=== PATIENT | female | born 1940 | race Two or more races ===

== ENCOUNTER → 2017-02-05 | Outpatient (CLI) | payer OTHER ==
[2016-02-12 10:20] VITALS: BP 121/51
[~2017-02-05] MED LIST: AMLO5TAB2 PO; BUDE10.22 IH; DICL75TA PO; HYDR12.58 PO; METF850T2 PO; POTA10TA5 PO
--- NOTE | 2017-02-05 16:13 | KCIC ---
CT of the right shoulder without contrast Indication: Displaced fracture. Shoulder pain after a fall 3 weeks ago. . Comparison: No comparison is available. Contrast: None TECHNIQUE: Images were obtained using bone algorithm. Exposure: One or more of the following individualized dose reduction techniques were utilized for this examination: 1. Automated exposure control 2. Adjustment of the mA and/or kV according to patient size 3. Use of iterative reconstruction technique. Findings: Acromioclavicular joint is mildly degenerative with small undersurface osteophytes. Minimal degenerative spurring of the glenohumeral joint. Minimal calcification within the distal rotator cuff compatible with mild calcific tendinitis. No evidence of an acute fracture. No aggressive bone destruction. No obvious soft tissue abnormality. IMPRESSION: 1. No acute fracture or dislocation. 2. Primary osteoarthritis. Electronically signed by: Fermin Toribio MD (02/05/2017 4:10 PM)
== END | disposition home or self-care (01) ==
LOC: KCIC CT 08:51
PROVIDERS: ATTEND Nurse Practitioner Gerontology
DX: M19.011 Primary osteoarthritis, right shoulder (principal)
CPT/HCPCS: 73200

== ENCOUNTER → 2017-05-17 | Outpatient (CLI) | payer OTHER ==
[2016-02-12 10:20] VITALS: BP 121/51
--- NOTE | 2017-05-17 12:21 | RAD ---
DATE: 05/17/2017. EXAM: DIGITAL SCREEN BILAT W/CAD. HISTORY: Routine mammographic screening. COMPARISON: 04/16/2016, 12/19/2014, 12/04/2013. This study was interpreted with the benefit of Computerized Aided Detection (CAD). FINDINGS: The breast parenchyma is primarily fatty replaced. Breast parenchyma level density A.. There are no suspicious masses, microcalcifications or architectural distortion. Vascular calcifications are benign. Stable intraparenchymal lymph nodes are seen bilaterally. BI-RADS CATEGORY: 2 BENIGN FINDING(S). RECOMMENDED FOLLOW-UP: 12M 12 MONTH FOLLOW-UP. PQRS compliance statement: Patient information was entered into a reminder system with a target due date 05/17/2018 for the next mammogram. Mammography is a sensitive method for finding small breast cancers, but it does not detect them all and is not a substitute for careful clinical examination. A negative mammogram does not negate a clinically suspicious finding and should not result in delay in biopsying a clinically suspicious abnormality. "Our facility is accredited by the [employer] Mammography Program."
== END | disposition home or self-care (01) ==
LOC: MAMMO 08:01
PROVIDERS: ATTEND Family Medicine
DX: Z12.31 Encounter for screening mammogram for malignant neoplasm of breast (principal)
CPT/HCPCS: G0202; 77067

== ENCOUNTER 2019-06-06 10:59 | Emergency (ER) | payer OTHER ==
[~2019-06-06] VITALS: Ht 154.9 cm; Wt 79.4 kg
[~2019-06-06 10:59] MED LIST changes: +AMLO5TAB10 PO; -AMLO5TAB2 PO; -METF850T2 PO; +METF850T8 PO; +POTA10TA12 PO; -POTA10TA5 PO
[2019-06-06 11:50] LABS: CALCIUM 9.4 mg/dL (8.5-10.1); CREATININE 0.9 mg/dL (0.6-1.0); GFR 60.4
[2019-06-06 11:51] LABS: PROTHROMBIN TIME PATIENT 12.8 SEC (11.7-14.0)
[2019-06-06 11:52] LABS: BASO % 1 % (0-3); EOS # 0.1 x10^3/uL (0.0-0.7); EOS % 1 % (0-3); HEMATOCRIT 33.6 % (36.0-47.0); HEMOGLOBIN 11.4 g/dL (12.0-15.5); LYMPH # 1.1 x10^3/uL (1.0-4.8); LYMPH % 21 % (24-48); MEAN CORPUSCULAR HEMOGLOBIN 31 pg (25-35); MEAN CORPUSCULAR HGB CONC 34 g/dL (31-37); MEAN CORPUSCULAR VOLUME 91 fL (79-100); MONO # 0.4 x10^3/uL (0.0-1.1); MONO % 7 % (0-9); NEUT # 3.8 x10^3/uL (1.8-7.7); NEUT % 70 % (31-73); PLATELET COUNT 182 x10^3/uL (140-400); RED BLOOD COUNT 3.71 x10^6/uL (3.50-5.40); RED CELL DISTRIBUTION WIDTH 14.8 % (11.5-14.5); WHITE BLOOD COUNT 5.5 x10^3/uL (4.0-11.0)
[2019-06-06 11:57] LABS: ALBUMIN 3.6 g/dL (3.4-5.0); ALBUMIN/GLOBULIN RATIO 0.9 (1.0-1.7); MAGNESIUM 1.7 mg/dL (1.8-2.4); TOTAL BILIRUBIN 0.4 mg/dL (0.2-1.0); TOTAL PROTEIN 7.4 g/dL (6.4-8.2)
--- NOTE | 2019-06-06 12:06 | RAD ---
Single AP view of the chest. Comparison: None. Indication: Dizziness Findings: There is degenerative changes of bilateral shoulders. The heart is not enlarged. There is no pneumothorax or effusion. No air space or interstitial disease. Impression: 1. No acute cardiopulmonary process. Electronically signed by: Denilson Cedeno MD (06/06/2019 12:03 PM) [id number]
--- NOTE | 2019-06-06 12:11 | RAD ---
CT HEAD WO CONTRAST History: Dizziness Comparison: None. Technique: Noncontrast CT imaging was performed of the head. Exposure: One or more of the following individualized dose reduction techniques were utilized for this examination: 1. Automated exposure control 2. Adjustment of the mA and/or kV according to patient size 3. Use of iterative reconstruction technique. Findings: No acute extra-axial or parenchymal hemorrhage is identified. There is no significant intra-axial mass effect, midline shift, or extra-axial fluid collection. The goldsmith-white differentiation of the major vascular territories is preserved. The ventricles, sulci, and cisterns are within normal limits in size and configuration. The mastoid air cells and the visualized paranasal sinuses are aerated. No acute calvarial abnormality is identified. There is atherosclerotic calcification of the bilateral carotid siphons and intradural vertebral arteries. There is probably at least partially empty sella. Impression: 1. No acute intracranial abnormality is identified. Electronically signed by: Jack Villareal MD (06/06/2019 12:09 PM) [facility]
--- NOTE | 2019-06-06 12:33 | EKG ---
[facility] [address] [place] [address] Test Date: 2019-06-06 Test Time: 11:09:28 Pat Name: BENNIE BABCOCK Department: Room: Gender: F Filling Mixer: : 1940 Requested By: ANAND WOMACK Order Number: [id number] Reading MD: Measurements Intervals [place] Rate: 56 P: 62 NH: 144 QRS: -17 QRSD: 92 T: 51 QT: 426 QTc: 413 Interpretive Statements SINUS RHYTHM LEFTWARD AXIS OTHERWISE NORMAL ECG No previous ECG available for comparison
[2019-06-06 12:42] LABS: BILIRUBIN,URINE NEGATIVE (NEG); CLARITY,URINE CLEAR; COLOR,URINE YELLOW; NITRITE,URINE NEGATIVE (NEG); PROTEIN,URINE NEGATIVE (NEG-TRACE); UROBILINOGEN,URINE 0.2 mg/dL (0.2 mg/dL)
[2019-06-06 12:51] LABS: BACTERIA,URINE 0 /HPF (0-FEW); RBC,URINE 0 /HPF (0-2); SQUAMOUS EPITHELIAL CELL,UR FEW /LPF; WBC,URINE >40 /HPF (0-4)
[2019-06-06] MEDS ORDERED: IV NORMAL SALINE 1000ML BAG 1,000 ML IV ONE (13:15)
[2019-06-06] MEDS ORDERED: cefTRIAXone IV Push 1 GM VIAL. IVP ONE (13:15)
[2019-06-06] MEDS ORDERED: MECL25TA3 PO (13:41)
[2019-06-06] MEDS ORDERED: CIPR250T30 PO (13:41)
--- NOTE | 2019-06-06 13:42 | PHYS DOC ---
Past Medical History Past Medical History: Diabetes-Type II, Hypertension, Hypothyroid Additional Past Surgical Histo: BACK Alcohol Use: None Drug Use: None Adult General Chief Complaint Chief Complaint: DIZZY/LIGHT HEADED HPI HPI Patient is a 78 year old female who presents with obtaining of dizziness. Patient complaining of episodes of dizziness with standing up and changing position of her head since yesterday without headache, focal neuro deficit, nausea and vomiting, chest pain, shortness of breath, blurred vision or diplopia. Patient states she had one subsequent to this of a splinter. Patient denies recent URI symptoms or fever and chills. Review of Systems Review of Systems Constitutional: Denies fever or chills [] Eyes: Denies change in visual acuity, redness, or eye pain [] HENT: Denies nasal congestion or sore throat [] Respiratory: Denies cough or shortness of breath [] Cardiovascular: No additional information not addressed in HPI [] GI: Denies abdominal pain, nausea, vomiting, bloody stools or diarrhea [] : Denies dysuria or hematuria [] Musculoskeletal: Denies back pain or joint pain [] Integument: Denies rash or skin lesions [] Neurologic: Denies headache, focal weakness or sensory changes [] Endocrine: Denies polyuria or polydipsia [] All other systems were reviewed and found to be within normal limits, except as documented in this note. Current Medications Current Medications Current Medications Medications (Trade) Dose Ordered Sig/Marybeth Start Time Stop Time Status Last Admin Dose Admin Ceftriaxone Sodium (Rocephin) 1 gm 1X ONCE 06/06/19 13:15 06/06/19 13:16 DC 06/06/19 13:31 1 GM Sodium Chloride 1,000 ml @ 1,000 mls/hr 1X ONCE 06/06/19 13:15 06/06/19 14:14 06/06/19 13:30 1,000 MLS/HR Allergies Allergies Allergies Coded Allergies Type Severity Reaction Last Updated Verified Sulfa (Sulfonamide Antibiotics) Allergy Intermediate Anxiety 02/12/16 Yes codeine Allergy Intermediate Itching 02/12/16 Yes Physical Exam Physical Exam Constitutional: Well developed, well nourished, mild distress, non-toxic appearance. [] HENT: Normocephalic, atraumatic. Eyes: PERRLA, EOMI, conjunctiva normal, no discharge. [] Neck: Normal range of motion, no tenderness, supple, no stridor. [] Cardiovascular:Heart rate regular rhythm, no murmur [] Lungs & Thorax: Bilateral breath sounds clear to auscultation [] Abdomen: Bowel sounds normal, soft, no tenderness, no masses, no pulsatile masses. [] Skin: Warm, dry, no erythema, no rash. [] Back: No tenderness, no CVA tenderness. [] Extremities: No tenderness, no cyanosis, no clubbing, ROM intact, no edema. [] Neurologic: Alert and oriented X 3, no focal deficits noted. [] Psychologic: Affect normal, judgement normal, mood normal. [] Current Patient Data Vital Signs Vital Signs Date Time Temp Pulse Resp B/P (MAP) Pulse Ox O2 Delivery O2 Flow Rate FiO2 06/06/19 11:00 98.3 64 20 176/77 (110) 98 Room Air 98.3 Lab Values Laboratory Tests Test 06/06/19 11:10 06/06/19 12:10 White Blood Count 5.5 x10^3/uL (4.0-11.0) Red Blood Count 3.71 x10^6/uL (3.50-5.40) Hemoglobin 11.4 g/dL (12.0-15.5) L Hematocrit 33.6 % (36.0-47.0) L Mean Corpuscular Volume 91 fL (79-100) Mean Corpuscular Hemoglobin 31 pg (25-35) Mean Corpuscular Hemoglobin Concent 34 g/dL (31-37) Red Cell Distribution Width 14.8 % (11.5-14.5) H Platelet Count 182 x10^3/uL (140-400) Neutrophils (%) (Auto) 70 % (31-73) Lymphocytes (%) (Auto) 21 % (24-48) L Monocytes (%) (Auto) 7 % (0-9) Eosinophils (%) (Auto) 1 % (0-3) Basophils (%) (Auto) 1 % (0-3) Neutrophils # (Auto) 3.8 x10^3/uL (1.8-7.7) Lymphocytes # (Auto) 1.1 x10^3/uL (1.0-4.8) Monocytes # (Auto) 0.4 x10^3/uL (0.0-1.1) Eosinophils # (Auto) 0.1 x10^3/uL (0.0-0.7) Basophils # (Auto) 0.0 x10^3/uL (0.0-0.2) Prothrombin Time 12.8 SEC (11.7-14.0) Prothrombin Time INR 1.0 (0.8-1.1) Sodium Level 144 mmol/L (136-145) Potassium Level 4.0 mmol/L (3.5-5.1) Chloride Level 108 mmol/L (98-107) H Carbon Dioxide Level 24 mmol/L (21-32) Anion Gap 12 (6-14) Blood Urea Nitrogen 27 mg/dL (7-20) H Creatinine 0.9 mg/dL (0.6-1.0) Estimated GFR (Cockcroft-Gault) 60.4 BUN/Creatinine Ratio 30 (6-20) H Glucose Level 114 mg/dL (70-99) H Calcium Level 9.4 mg/dL (8.5-10.1) Magnesium Level 1.7 mg/dL (1.8-2.4) L Total Bilirubin 0.4 mg/dL (0.2-1.0) Aspartate Amino Transferase (AST) 14 U/L (15-37) L Alanine Aminotransferase (ALT) 12 U/L (14-59) L Alkaline Phosphatase 79 U/L (46-116) Creatine Kinase 64 U/L (26-192) Troponin I Quantitative < 0.017 ng/mL (0.000-0.055) RZ-Wuh-N-Type Natriuretic Peptide 225 pg/mL (0-449) Total Protein 7.4 g/dL (6.4-8.2) Albumin 3.6 g/dL (3.4-5.0) Albumin/Globulin Ratio 0.9 (1.0-1.7) L Urine Collection Type Unknown Urine Color Yellow Urine Clarity Clear Urine pH 6.0 Urine Specific Silver 1.010 Urine Protein Negative mg/dL (NEG-TRACE) Urine Glucose (UA) Negative mg/dL (NEG) Urine Ketones (Stick) Negative mg/dL (NEG) Urine Blood Negative (NEG) Urine Nitrite Negative (NEG) Urine Bilirubin Negative (NEG) Urine Urobilinogen Dipstick 0.2 mg/dL (0.2 mg/dL) Urine Leukocyte Esterase Moderate (NEG) Urine RBC 0 /HPF (0-2) Urine WBC >40 /HPF (0-4) Urine Squamous Epithelial Cells Few /LPF Urine Bacteria 0 /HPF (0-FEW) Laboratory Tests 06/06/19 11:10 Laboratory Tests 06/06/19 11:10 EKG EKG EKG interpreted by me. EKG at 1109 showed bradycardia at rate of 56, left koroma axis, no acute ST and T-wave abnormalities. Radiology/Procedures Radiology/Procedures [][place] [address] IMAGING REPORT Signed PATIENT: BENNIE BABCOCK ACCOUNT: [id number] : 1940 LOCATION: ER AGE: 78 SEX: F EXAM STATUS: REG ER ORD. PHYSICIAN: ANAND WOMACK MD REASON: dizziness PROCEDURE: PORTABLE CHEST 1V Single AP view of the chest. Comparison: None. Indication: Dizziness Findings: There is degenerative changes of bilateral shoulders. The heart is not enlarged. There is no pneumothorax or effusion. No air space or interstitial disease. Impression: 1. No acute cardiopulmonary process. Electronically signed by: Denilson Cedeno MD (06/06/2019 12:03 PM) [facility] DICTATED and SIGNED BY: DENILSON CEDENO MD DATE: 06/06/19 [address] [place] [id number] IMAGING REPORT Signed PATIENT: BENNIE BABCOCK ACCOUNT: [id number] : 1940 LOCATION: ER AGE: 78 SEX: F EXAM STATUS: REG ER ORD. PHYSICIAN: ANAND WOMACK MD REASON: dizziness PROCEDURE: CT HEAD WO CONTRAST CT HEAD WO CONTRAST History: Dizziness Comparison: None. Technique: Noncontrast CT imaging was performed of the head. Exposure: One or more of the following individualized dose reduction techniques were utilized for this examination: 1. Automated exposure control 2. Adjustment of the mA and/or kV according to patient size 3. Use of iterative reconstruction technique. Findings: No acute extra-axial or parenchymal hemorrhage is identified. There is no significant intra-axial mass effect, midline shift, or extra-axial fluid collection. The goldsmith-white differentiation of the major vascular territories is preserved. The ventricles, sulci, and cisterns are within normal limits in size and configuration. The mastoid air cells and the visualized paranasal sinuses are aerated. No acute calvarial abnormality is identified. There is atherosclerotic calcification of the bilateral carotid siphons and intradural vertebral arteries. There is probably at least partially empty sella. Impression: 1. No acute intracranial abnormality is identified. Electronically signed by: Vaishali Villareal MD (06/06/2019 12:09 PM) [facility] DICTATED and SIGNED BY: VAISHALI VILLAREAL MD DATE: 06/06/19 1203 Course & Med Decision Making Course & Med Decision Making Pertinent Labs and Imaging studies reviewed. (See chart for details) Evaluation of patient in ER showed 78-year-old male patient with complaining of episodes of positional dizziness since yesterday. Patient had unremarkable physical exam and normal exam. Labs was unremarkable except for more than 40 WBC UA and elevation of BUN/creatinine. CT head and chest x-ray was unremarkable. Patient treated with IV fluid and Rocephin in ER and discharged home with diagnose of positional vertigo and UTI and dehydration. Patient was advised to increase fluid intake and follow up with her primary care physician. I've spoken with the patient and/or caregivers. I've explained the patient's condition, diagnosis and treatment plan based on information available to me at this time. I've answered the patient's and/or caregivers questions and addressed any concerns. The patient and/or caregivers have a good understanding the patient's diagnosis, condition and treatment plan as can be expected at this point. Vital signs have been stabilized. The patient's condition is stable for discharge from the emergency department. The patient will pursue further outpatient evaluation with her primary care provider or other designated consulting physician as outlined in the discharge instructions. Patient and/or caregivers are agreeable to this plan of care and follow-up instructions have been explained in detail. The patient and/or caregivers have received these instructions in written format and expressed understanding of these discharge instructions. The patient and her caregivers are aware that if any significant change in condition or worsening of symptoms should prompt him to immediately return to this of the closest emergency department. If an emergent department is not readily available I would encourage him to call 911. Dragon Disclaimer Dragon Disclaimer This electronic medical record was generated, in whole or in part, using a voice recognition dictation system. Departure Departure Impression: Primary Impression: Benign positional vertigo Additional Impressions: Urinary tract infection Dehydration Disposition: HOME, SELF-CARE (at 1331) Condition: IMPROVED Referrals: YVONNE WESTON MD (PCP) Patient Instructions: Benign Positional Vertigo, Dehydration, Adult, Urinary Tract Infection Additional Instructions: Drink plenty of liquids Follow-up with your primary care physician in 3-5 days Return to ER if not getting better Scripts Meclizine Hcl (MECLIZINE HCL) 25 Mg Tablet 1 TAB PO TID for dizziness, #20 TAB Prov: ANAND WOMACK MD 06/06/19 Ciprofloxacin Hcl (CIPRO) 250 Mg Tablet 1 TAB PO BID for infection, #14 TAB Prov: ANAND WOMACK MD 06/06/19 Problem Qualifiers Primary Impression: Benign positional vertigo Laterality: unspecified laterality Qualified Codes: H81.10 - Benign paroxysmal vertigo, unspecified ear Additional Impressions: Urinary tract infection Urinary tract infection type: site unspecified Hematuria presence: without hematuria Qualified Codes: N39.0 - Urinary tract infection, site not specified ANAND WOMACK MD Jun 06, 2019 13:42
[2019-06-06 14:03] VITALS: BP 146/67
== END 2019-06-06 14:19 | disposition home or self-care (01) ==
LOC: ER 10:59
DX: H81.10 Benign paroxysmal vertigo, unspecified ear (principal); N39.0 Urinary tract infection, site not specified; E86.0 Dehydration; R51 Headache; E11.9 Type 2 diabetes mellitus without complications; I10 Essential (primary) hypertension; E03.9 Hypothyroidism, unspecified; Z88.2 Allergy status to sulfonamides; Z88.5 Allergy status to narcotic agent
CPT/HCPCS: 36415; 70450; 71045; 80053; 81001; 82550; 83735; 83880; 84484; 85025; 85610; 87086; 93005; 96361; 96374; 99285; J0696; J7030

== ENCOUNTER 2019-11-13 12:52 | Emergency (ER) | payer OTHER ==
[~2019-11-13] VITALS: Ht 152.4 cm; Wt 70.4 kg
[~2019-11-13 12:52] MED LIST changes: +CIPR250T30 PO; +MECL-75 PO
[2019-11-13 13:40] VITALS: BP 160/89
--- NOTE | 2019-11-13 14:17 | RAD ---
3 view study of the left shoulder Clinical indications: Left shoulder pain for 2 weeks. FINDINGS: No acute fracture or dislocation or lytic process is seen. No AC joint separation is evident. Mild primary degenerative osteoarthritis and spurring of the left AC joint is seen. IMPRESSION: No acute fracture. Electronically signed by: Tez Higgins MD (11/13/2019 2:14 PM) [facility]
[2019-11-13] MEDS ORDERED: METH4TAB2 PO (14:44)
[2019-11-13] MEDS ORDERED: HYDR-3164 PO (14:44)
--- NOTE | 2019-11-13 14:44 | PHYS DOC ---
Past Medical History Past Medical History: Diabetes-Type II, Hypertension, Hypothyroid Past Surgical History: Other Additional Past Surgical Histo: BACK Smoking Status: Former Smoker Alcohol Use: None Drug Use: None Adult General Chief Complaint Chief Complaint: SHOULDER INJURY [facility] HPI Patient is a 78 year old right-handed female with history of diabetes mellitus, hypertension, hypothyroidism who presented complaining of left shoulder pain. Patient states she has had pain in left shoulder since October 30 after she tried to put some heavy clothes in the rack above of her head while she was working at [employer] and since then is not able to raise her arm. Patient stated she does not have pain without moving her shoulder and complaining of swelling of her hand and numbness of her finger for the last couple days. Patient states she did not seek medical attention even she was told she needs to follow with work comp clinic. Patient denies chest pain, shortness of breath, fever and chills, cough and congestion. Review of Systems Review of Systems Constitutional: Denies fever or chills [] Eyes: Denies change in visual acuity, redness, or eye pain [] HENT: Denies nasal congestion or sore throat [] Respiratory: Denies cough or shortness of breath [] Cardiovascular: No additional information not addressed in HPI [] GI: Denies abdominal pain, nausea, vomiting, bloody stools or diarrhea [] : Denies dysuria or hematuria [] Musculoskeletal: Denies back pain, reports joint pain [] Integument: Denies rash or skin lesions [] Neurologic: Denies headache, focal weakness or sensory changes [] Endocrine: Denies polyuria or polydipsia [] All other systems were reviewed and found to be within normal limits, except as documented in this note. Allergies Allergies Allergies Coded Allergies Type Severity Reaction Last Updated Verified Sulfa (Sulfonamide Antibiotics) Allergy Intermediate Anxiety 02/12/16 Yes codeine Allergy Intermediate Itching 02/12/16 Yes Physical Exam Physical Exam Constitutional: Well developed, well nourished, mild distress, non-toxic appearance. [] HENT: Normocephalic, atraumatic. Eyes: PERRLA, EOMI, conjunctiva normal, no discharge. [] Neck: Normal range of motion, no tenderness, supple, no stridor. [] Cardiovascular:Heart rate regular rhythm, no murmur [] Lungs & Thorax: Bilateral breath sounds clear to auscultation [] Extremities: Left shoulder without deformity or edema, no tenderness, limited range of motion of abduction, mild edema of wrist and finger most likely related to position of hanging her arm for a long time, no cyanosis, no clubbing. Neurologic: Alert and oriented X 3, no focal deficits noted. [] Psychologic: Affect normal, judgement normal, mood normal. [] Current Patient Data Vital Signs Vital Signs Date Time Temp Pulse Resp B/P (MAP) Pulse Ox O2 Delivery O2 Flow Rate FiO2 11/13/19 13:40 98.0 63 19 160/89 (112) 98 Room Air 98.0 EKG EKG [] Radiology/Procedures Radiology/Procedures [facility] [address] [place] [address] IMAGING REPORT Signed PATIENT: MATEUSZ ZHU ACCOUNT: [id number] : 05/25/1948 LOCATION: ER AGE: 71 SEX: F EXAM STATUS: REG ER ORD. PHYSICIAN: ANAND WOMACK MD REASON: Headache and neck pain PROCEDURE: CT HEAD AND CERVICAL SPINE WO Examination: CT HEAD AND CERVICAL SPINE WO History: Headache and neck pain Comparison/Correlation: 01/08/2005 cervical spine x-ray exam Findings: Axial images of the head and cervical spine were obtained without contrast. Sagittal and coronal reformatted images were provided. Ventricles are normal size. Mild chronic ischemic change of the white matter is present. No midline shift or mass effect. No intracranial hemorrhage. Osteochondromas of the frontal bone are present with no suspicious features. Atlantoaxial joint degenerative remodeling is notable. Reversal of cervical lordosis at C4-5 is notable and appears related to degenerative change. This finding is new since the 2004 x-ray exam. Bony encroachment on neural foramina bilaterally at C4-5 noted with severe narrowing on the left. Bony encroachment is significant bilaterally at C5-6. Multilevel moderate disc space narrowing is present from C5 to T1. Facet joint degenerative subchondral cystic involvement, sclerosis, and narrowing at the right C3-4 level is noted. Degenerative changes otherwise of the facet joints are of a lesser degree. No fracture or bone destruction. Soft tissues of the neck are unremarkable. Levo convexity of the cervical spine is mild. Impression: No intracranial hemorrhage or other suspicious intracranial process. Degenerative changes of the cervical spine of varying severity. Reversal of cervical spine lordosis at C4-5 is evident likely due to degenerative change. PQRS Compliance Statement: One or more of the following individualized dose reduction techniques were utilized for this examination: 1. Automated exposure control 2. Adjustment of the mA and/or kV according to patient size 3. Use of iterative reconstruction technique Electronically signed by: Sixto Diallo MD (11/13/2019 12:14 PM) [id number] DICTATED and SIGNED BY: SIXTO DIALLO MD DATE: 11/13/19 1214 Course & Med Decision Making Course & Med Decision Making Pertinent Imaging studies reviewed. (See chart for details) Evaluation of patient ER showed 78-year-old right-handed female patient with injury to left shoulder area 2 weeks ago while she was at work with sign of rotator cuff injury and limited abduction. X-ray did not show acute findings. Shoulder splint was applied and patient was advised to follow-up with for complaint of alcohol orthopedic physician for possible MRI and rotator cuff injury treatment. I've spoken with the patient and/or caregivers. I've explained the patient's condition, diagnosis and treatment plan based on information available to me at this time. I've answered the patient's and/or caregivers questions and addressed any concerns. The patient and/or caregivers have a good understanding the patient's diagnosis, condition and treatment plan as can be expected at this point. Vital signs have been stabilized. The patient's condition is stable for discharge from the emergency department. The patient will pursue further outpatient evaluation with her primary care provider or other designated consulting physician as outlined in the discharge instructions. Patient and/or caregivers are agreeable to this plan of care and follow-up instructions have been explained in detail. The patient and/or caregivers have received these instructions in written format and expressed understanding of these discharge instructions. The patient and her caregivers are aware that if any significant change in condition or worsening of symptoms should prompt him to immediately return to this of the closest emergency department. If an emergent department is not readily available I would e ncourage him to call 911. Berry Disclaimer Dragon Disclaimer This electronic medical record was generated, in whole or in part, using a voice recognition dictation system. Departure Departure Impression: Primary Impression: Injury of left rotator cuff Disposition: HOME, SELF-CARE (At 1441) Condition: STABLE Referrals: CAROLEE ZARAGOZA MD (PCP) DAIN RABAGO MD Patient Instructions: Rotator Cuff Injury Additional Instructions: Apply ice on left shoulder Follow-up with on-call orthopedic physician in 2 to 3 days Follow-up with work comp clinic in 2 or 3-day Return to ER if not getting better Thank you for visiting [facility]. We appreciate you trusting us with your care. If any additional problems come up don't hesitate to return to visit us. Please follow up with your primary care provider so they can plan additional care if needed and know about the problem that you had. If symptoms worsen come back to the Emergency Department. Any concerning symptoms that start such as chest pain, shortness of air, weakness or numbness on one side of the body, running high fevers or any other concerning symptoms return to the ER. Scripts Hydrocodone/Apap 5-325 (NORCO 5-325 TABLET) 1 Each Tablet 1 TAB PO PRN Q6HRS PRN for PAIN, #14 TAB 0 Refills Prov: ANAND WOMACK MD 11/13/19 Methylprednisolone (MEDROL) 4 Mg Tab.ds.pk 1 PKG PO UD for inflammation, #1 PKG Prov: ANAND WOMACK MD 11/13/19 Problem Qualifiers Primary Impression: Injury of left rotator cuff Encounter type: initial encounter Qualified Codes: S46.002A - Unspecified injury of muscle(s) and tendon(s) of the rotator cuff of left shoulder, initial encounter ANAND WOMACK MD Nov 13, 2019 14:44
== END 2019-11-13 14:53 | disposition home or self-care (01) ==
LOC: ER 12:52
DX: S46.002A Unspecified injury of muscle(s) and tendon(s) of the rotator cuff of left shoulder, initial encounter (principal); E11.9 Type 2 diabetes mellitus without complications; I10 Essential (primary) hypertension; E03.9 Hypothyroidism, unspecified; Z87.891 Personal history of nicotine dependence; Z88.2 Allergy status to sulfonamides; Z88.5 Allergy status to narcotic agent; X50.0XXA Overexertion from strenuous movement or load, initial encounter; Y93.89 Activity, other specified; Y92.69 Other specified industrial and construction area as the place of occurrence of the external cause; Y99.0 Civilian activity done for income or pay
CPT/HCPCS: 73030; 99283

== ENCOUNTER → 2020-07-25 | Outpatient (CLI) | payer MEDICARE, OTHER ==
[~2020-07-25] MED LIST changes: +AMLO-186 PO; -AMLO5TAB10 PO; +HYDR-3164 PO; +METH4TAB2 PO
--- NOTE | 2020-07-25 15:04 | KCIC ---
MRI of the Brain without and with Contrast 07/25/2020 Clinical History: Memory loss. Technique: Unenhanced T1-weighted sagittal and axial and FLAIR, T2-weighted, gradient echo and diffusion-weighted axial images of the brain were obtained. After the intravenous administration of 6 cc of Gadavist, enhanced T1-weighted axial, sagittal and coronal images of the brain were obtained. Findings: Comparison is made to the patient's CT scan of the head dated 06/06/2019. Some of the images from the study are degraded by patient motion. There is generalized parenchymal atrophy. Patchy and multiple small focal areas of abnormally increased signal intensity are seen within the periventricular and subcortical white matter of both cerebral hemispheres on the FLAIR and T2-weighted images consistent with areas of small vessel ischemic disease. No acute parenchymal abnormality is seen. No abnormal area of contrast enhancement is noted. No extra-axial fluid collection is seen. There is no MRI evidence of acute ischemia/infarction. An oval-shaped extra-axial mass is seen in the right sellar region separate from the pituitary gland which extends to involve the medial aspect of the right cavernous sinus. This measures 1.1 x 1.2 x 1.0 cm in transverse, craniocaudal and AP dimensions. This is felt to most likely represent a meningioma. It is unchanged when compared to the patient's previous CT scan of the head. Mild mucosal thickening is seen involving scattered throughout the paranasal sinuses. There are minimal bilateral mastoid effusions. Normal flow voids are seen within the major vascular structures surrounding the brain parenchyma. Impression: 1. 1.2 cm extra-axial mass is seen in the right sellar region which is felt to most likely represent a meningioma. It is unchanged from the patient's previous CT scan of the head. 2. No acute parenchymal abnormality is seen. Electronically signed by: Darrick Marin MD (07/25/2020 3:00 PM) [id number]
== END ==
LOC: KCIC MRI 10:42
PROVIDERS: ATTEND Family Medicine
DX: R41.3 Other amnesia (principal); G93.9 Disorder of brain, unspecified
CPT/HCPCS: 70551